=== PATIENT | female | born 1985 | race African-American/Black ===

== ENCOUNTER 2019-04-08 14:06 | Emergency (ER) | payer OTHER ==
[2019-04-08 14:12] VITALS: BP 119/86; PULSE 77; TEMP 97.9; BMI 35.2
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
[2019-04-08] MEDS ORDERED: IBUPROFEN 400 MG TABLET (FP) PO ONE (14:53)
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
== END 2019-04-08 15:12 | disposition home or self-care (01) ==
LOC: JERFT 14:06
DX: M54.5 Low back pain (principal); V43.52XA Car driver injured in collision with other type car in traffic accident, initial encounter; Y92.488 Other paved roadways as the place of occurrence of the external cause; Y93.89 Activity, other specified; Y99.8 Other external cause status; Z91.013 Allergy to seafood
CPT/HCPCS: 99281-25

== ENCOUNTER 2019-04-14 16:58 | Emergency (ER) | payer OTHER ==
[2019-04-14 17:19] VITALS: BP 137/94; PULSE 80; TEMP 97.8; BMI 37.8
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
[2019-04-14] MEDS ORDERED: LIDOCAINE 5% TOPICAL PATCH TP ONE (17:39)
[2019-04-14] MEDS ORDERED: KETOROLAC TROMETHAMINE 60 MG/2 ML VIAL IM ONE (17:39)
[2019-04-14] MEDS ORDERED: DEXAMETHASONE LIQUID 0.5 MG/5 ML PO ONE (17:39)
[2019-04-14] MEDS ORDERED: KETOROLAC TROMETHAMINE 60 MG/2 ML VIAL ONE (17:42)
[2019-04-14] MEDS ORDERED: DEXAMETHASONE SOD PHOSPHATE 10 MG/1 ML VIAL ONE (17:42)
[2019-04-14] MEDS ORDERED: LIDOCAINE 5% TOPICAL PATCH ONE (17:42)
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
== END 2019-04-14 19:00 | disposition home or self-care (01) ==
LOC: JERFT 16:58
PROC: 3E0233Z Introduction of Anti-inflammatory into Muscle, Percutaneous Approach (ICD-10-PCS; principal; 2019-04-14)
DX: M54.41 Lumbago with sciatica, right side (principal); M62.830 Muscle spasm of back; Z91.013 Allergy to seafood; V49.49XS Driver injured in collision with other motor vehicles in traffic accident, sequela
CPT/HCPCS: 72100-TC-FY; 99282-25

== ENCOUNTER 2019-06-30 11:11 | Emergency (ER) | payer OTHER ==
[2019-06-30 11:17] VITALS: BP 148/86; PULSE 90; TEMP 98.7; BMI 39.9
--- NOTE | 2019-06-30 11:28 | PDOC ---
History of Present Illness - General Chief Complaint: Sore Throat Stated Complaint: SORE THROAT Time Seen by Provider: 06/30/19 11:26 History Source: Patient - History of Present Illness Initial Comments: 06/30/19 11:35 34-year-old female complaining of sore throat and fever for the last 3 days. Patient reports that she has been taking TheraFlu and NyQuil and DayQuil for fever. Denies cough, nasal congestion. Patient reports fever of 102 today. Took Advil this morning prior to arrival No high potato voice no drooling. No past medical history Past History - Past Medical History Allergies/Adverse Reactions: Allergies Allergy/AdvReac Type Severity Reaction Status Date / Time shellfish derived Allergy Verified 06/30/19 11:17 Home Medications: Ambulatory Orders Cyclobenzaprine HCl [Flexeril 10 mg] 10 mg PO HS #9 tablet 04/08/19 Ibuprofen [Motrin -] 600 mg PO QID #28 tablet 04/08/19 Methocarbamol [Robaxin -] 500 mg PO BID #14 tablet 04/14/19 Methylprednisolone [Medrol -] 4 mg PO ASDIR #21 tablet 04/14/19 Penicillin G Benzathine [Bicillin l-A] 1,200,000 unit IM ONCE #1 syringe COPD: No - Immunization History Immunization Up to Date: Yes - Psycho Social/Smoking Cessation Hx Smoking Status: No Smoking History: Never smoked Have you smoked in the past 12 months: No Number of Cigarettes Smoked Daily: 0 Cigars Per Day: 0 Hx Alcohol Use: No Drug/Substance Use Hx: No Review of Systems - Review of Systems Able to Perform ROS?: Yes Is the patient limited Bulgarian proficient: No Constitutional: Yes: Fever HEENTM: Yes: Throat Pain Respiratory: Yes: Cough Cardiac (ROS): No: Symptoms Reported, See HPI, Chest Pain, Edema, Irregular Heart Rate, Lightheadedness, Palpitations, Syncope, Chest Tightness, Other *Physical Exam - Vital Signs Last Vital Signs Temp Pulse Resp BP Pulse Ox 98.7 F 90 18 148/86 99 06/30/19 11:13 06/30/19 11:13 06/30/19 11:13 06/30/19 11:13 06/30/19 11:13 - Physical Exam General Appearance: Yes: Appropriately Dressed HEENT: positive: Tonsillar Erythema (with tpnsillar edema. no hot potatoe voice , drooling) Respiratory/Chest: positive: Lungs Clear, Normal Breath Sounds Cardiovascular: positive: Regular Rhythm, Regular Rate Gastrointestinal/Abdominal: positive: Normal Bowel Sounds, Soft. negative: Tender Musculoskeletal: positive: Normal Inspection Extremity: positive: Normal Capillary Refill, Normal Inspection, Normal Range of Motion Integumentary: positive: Normal Color, Dry, Warm Neurologic: positive: Fully Oriented, Alert Medical Decision Making - Medical Decision Making 06/30/19 12:10 pharyngitis P: bicillin rapid strep: positive Discharge - Discharge Information Problems reviewed: Yes Clinical Impression/Diagnosis: Pharyngitis Qualifiers: Pharyngitis/tonsillitis etiology: streptococcus Qualified Code(s): J02.0 - Streptococcal pharyngitis Disposition: HOME - Additional Discharge Information Prescriptions: Penicillin G Benzathine [Bicillin l-A] 1,200,000 unit IM ONCE #1 syringe - Follow up/Referral - Patient Discharge Instructions Patient Printed Discharge Instructions: Strep Throat Additional Instructions: Gargle with warm salty water take ibuprofen every 6 hours as needed for pain take tylenol every 4 hours as needed for pain throw away toothbrush in 3-4 days do not share cups or utensil with others Take amoxicillin as prescribed follow up with your doctor as soon as possible. Additional Instructions: Please call your personal physician to report your Emergency Department visit and to report your progress, if any. If there is no improvement in symptoms in 2 days call your physician. Return to the Emergency Department for any worsening symptoms. - Post Discharge Activity Work/Back to School Note: Back to Work
[2019-06-30] MEDS ORDERED: PENICILLIN G BENZATHINE 1,200,000 UNIT/2 ML PFS IM ONE ×2 (12:10→12:14)
== END 2019-06-30 12:36 | disposition home or self-care (01) ==
LOC: JERFT 11:11
DX: J02.0 Streptococcal pharyngitis (principal); B95.0 Streptococcus, group A, as the cause of diseases classified elsewhere; Z91.013 Allergy to seafood
CPT/HCPCS: 87880; 99281-25

== ENCOUNTER 2022-04-15 17:51 | Emergency (ER) | payer OTHER ==
[2022-04-15 17:58] VITALS: BP 122/87; PULSE 74; RESP 20; TEMP 98.7; BMI 32.3
[2022-04-15] MEDS ORDERED: KETOROLAC TROMETHAMINE 30 MG/1 ML VIAL IM ONE (18:15)
[2022-04-15] MEDS ORDERED: CYCLOBENZAPRINE HCL 10 MG TABLET (FP) PO ONE (18:15)
[2022-04-15] MEDS ORDERED: LIDOCAINE 5% TOPICAL PATCH TP ONE (18:15)
[2022-04-15] MEDS ORDERED: LIDOCAINE 5% TOPICAL PATCH ONE (18:25)
[2022-04-15] MEDS ORDERED: CYCLOBENZAPRINE HCL 10 MG TABLET (FP) ONE (18:25)
[2022-04-15] MEDS ORDERED: KETOROLAC TROMETHAMINE 30 MG/1 ML VIAL ONE (18:25)
[2022-04-15] MEDS ORDERED: LIDOCAINE PATCH REMOVAL MC SCH (22:00)
== END 2022-04-15 19:33 | disposition home or self-care (01) ==
LOC: JER 17:51
PROC: 3E023GC Introduction of Other Therapeutic Substance into Muscle, Percutaneous Approach (ICD-10-PCS; principal; 2022-04-15)
DX: M54.2 Cervicalgia (principal); M71.21 Synovial cyst of popliteal space [Baker], right knee
CPT/HCPCS: 73562-TC-LT-FY; 99284-25

== ENCOUNTER 2022-04-22 18:12 | Emergency (ER) | payer OTHER ==
[2022-04-22 18:20] VITALS: BP 122/86; PULSE 98; RESP 18; TEMP 99; BMI 32.3
[2022-04-22] MEDS ORDERED: FLUCONAZOLE 50 MG TABLET PO ONE (19:13)
[2022-04-22 19:50] LABS: URINE APPEARANCE CLEAR; URINE BILIRUBIN NEGATIVE (NEGATIVE); URINE COLOR YELLOW; URINE GLUCOSE (UA) NEGATIVE (NEGATIVE); URINE KETONE NEGATIVE (NEGATIVE); URINE LEUK ESTERASE NEGATIVE (NEGATIVE); URINE NITRITE NEGATIVE (NEGATIVE); URINE PROTEIN NEGATIVE (NEGATIVE)
[2022-04-22 19:52] LABS: HCG,QUALITATIVE URINE Negative
[2022-04-22] MEDS ORDERED: FLUCONAZOLE 150 MG TABLET PO ONE (19:58)
== END 2022-04-22 20:16 | disposition home or self-care (01) ==
LOC: JERFT 18:12
DX: B37.3 Candidiasis of vulva and vagina (principal)
CPT/HCPCS: 36415; 81003; 84703; 87070; 87086; 87205; 87491; 87591; 87661; 99283-25

== ENCOUNTER 2023-11-06 08:27 | Emergency (ER) | payer SELFPAY ==
[2023-11-06 08:37] VITALS: BP 133/97; PULSE 86; RESP 18; TEMP 98; BMI 34.3
[2023-11-06] MEDS ORDERED: ALBUTEROL SO4 2.5/IPRATROPIUM 0.5 INH SOL 3 ML VIAL.NEB. NEB ONE (09:29)
[2023-11-06] MEDS: ALBUTEROL SO4 2.5/IPRATROPIUM 0.5 INH SOL 3 ML VIAL.NEB. NEB ONE (09:32)
== END 2023-11-06 10:32 | disposition home or self-care (01) ==
LOC: JERFT 08:27 → JER 08:27 → JERFT 10:32
PROC: 3E0F7GC Introduction of Other Therapeutic Substance into Respiratory Tract, Via Natural or Artificial Opening (ICD-10-PCS; principal; 2023-11-06)
DX: J45.41 Moderate persistent asthma with (acute) exacerbation (principal); R05.9 Cough, unspecified; R07.89 Other chest pain
CPT/HCPCS: 99283-25

== ENCOUNTER 2024-01-31 16:54 | Emergency (ER) | payer OTHER ==
[2024-01-31 17:09] VITALS: BP 130/94; PULSE 71; RESP 16; TEMP 98.1; BMI 34.1
[2024-01-31] MEDS ORDERED: diphenhydrAMINE HCL 25 MG CAPSULE (FP) PO ONE (18:04)
[2024-01-31] MEDS ORDERED: DEXAMETHASONE SOD PHOSPHATE 10 MG/1 ML VIAL ONE (18:04)
[2024-01-31] MEDS: diphenhydrAMINE HCL 50 MG CAPSULE PO ONE (18:08)
[2024-01-31] MEDS: DEXAMETHASONE SOD PHOSPHATE 10 MG/1 ML VIAL IM ONE (18:08)
== END 2024-01-31 18:58 | disposition home or self-care (01) ==
LOC: JERFT 16:54 → JER 16:54 → JERFT 18:58
PROC: 3E023GC Introduction of Other Therapeutic Substance into Muscle, Percutaneous Approach (ICD-10-PCS; principal; 2024-01-31)
DX: R21 Rash and other nonspecific skin eruption (principal); L50.9 Urticaria, unspecified; L29.9 Pruritus, unspecified
CPT/HCPCS: 99284-25; J1100

== ENCOUNTER 2024-04-13 13:51 | Emergency (ER) | payer OTHER ==
[2024-04-13 13:57] VITALS: BP 131/83; PULSE 75; RESP 18; TEMP 98.6; BMI 33.7
[2024-04-13] MEDS ORDERED: ACETAMINOPHEN 500 MG TABLET (FP) ONE (14:38)
[2024-04-13] MEDS: ACETAMINOPHEN 500 MG TABLET (FP) PO ONE (14:50)
[2024-04-13 15:36] LABS: BASO % 1.2 % (0-2.0); EOS % 0.6 % (0-4.5); HEMATOCRIT 38.9 % (32.4-45.2); HEMOGLOBIN 12.9 GM/dL (10.7-15.3); LYMPH % 54.1 % (8-40); MCH 30.5 pg (25.7-33.7); MCHC 33.2 g/dl (32.0-36.0); MEAN PLT VOLUME 7.8 fl (7.5-11.1); MONO % 5.4 % (3.8-10.2); NEUT % 38.7 % (42.8-82.8); PLATELET COUNT 297 10^3/uL (134-434); RBC 4.23 M/mm3 (3.60-5.2); RDW 13.6 % (11.6-15.6); WHITE BLOOD COUNT 3.9 K/mm3 (4.0-10.0)
[2024-04-13 15:47] LABS: EPI CELLS >36 /uL (0-25.1); HYALINE CASTS 7 /uL (0-3.1); PH,URINE 6.5 (5.0-8.0); URINE APPEARANCE CLEAR; URINE BACTERIA 1158 /uL (0-1359); URINE BILIRUBIN NEGATIVE (NEGATIVE); URINE COLOR YELLOW; URINE GLUCOSE (UA) NEGATIVE (NEGATIVE); URINE KETONE NEGATIVE (NEGATIVE); URINE LEUK ESTERASE 1+ (NEGATIVE); URINE NITRITE NEGATIVE (NEGATIVE); URINE PROTEIN NEGATIVE (NEGATIVE); URINE RBC 10 /uL (0-23.9); URINE UROBILINOGEN 0.2 mg/dL (0.2-1.0); URINE WBC 51 /uL (0-25.8)
[2024-04-13 16:03] LABS: POTASSIUM 3.6 mmol/L (3.5-5.1)
[2024-04-13 16:06] LABS: ALBUMIN 3.7 g/dl (3.4-5.0); BLOOD UREA NITROGEN 6.7 mg/dL (7-18); CALCIUM 9.1 mg/dL (8.5-10.1)
[2024-04-13 16:10] LABS: BILIRUBIN,TOTAL 0.5 mg/dL (0.2-1); CREATININE 0.6 mg/dL (0.55-1.3); TOT PROT 7.6 g/dl (6.4-8.2)
[2024-04-13] MEDS ORDERED: IBUPROFEN 600 MG TABLET (FP) PO ONE (17:07)
[2024-04-13] MEDS: IBUPROFEN 600 MG TABLET (FP) PO ONE (17:13)
[2024-04-13 17:22] LABS: HIV INTERPRETATION NEGATIVE (NEGATIVE)
== END 2024-04-13 17:58 | disposition home or self-care (01) ==
LOC: JER 13:51
DX: R07.81 Pleurodynia (principal); R51.9 Headache, unspecified; N39.0 Urinary tract infection, site not specified; Z20.822 Contact with and (suspected) exposure to COVID-19
CPT/HCPCS: 0241U-QW; 36415; 71046-TC-FY; 80053; 81003; 84703; 85025; 86803; 87389; 93005; 93010; 99285-25

== ENCOUNTER 2024-08-02 00:20 | Emergency (ER) | payer OTHER ==
[2024-08-02 00:31] VITALS: BP 134/94; PULSE 95; RESP 18; TEMP 98.6; BMI 34.1
[2024-08-02] MEDS ORDERED: IBUPROFEN 400 MG TABLET (FP) PO ONE (00:57)
[2024-08-02] MEDS: IBUPROFEN 400 MG TABLET (FP) PO ONE (01:06)
[2024-08-02 01:32] LABS: THROAT:GRP A STREP NOT DETECTED (NOTDETECTED)
== END 2024-08-02 02:35 | disposition home or self-care (01) ==
LOC: JER 00:20
DX: J10.1 Influenza due to other identified influenza virus with other respiratory manifestations (principal); R50.9 Fever, unspecified; R09.81 Nasal congestion; R05.9 Cough, unspecified; Z20.822 Contact with and (suspected) exposure to COVID-19
CPT/HCPCS: 0241U-QW; 71046-TC-FY; 87651; 99284-25

== ENCOUNTER 2024-12-19 11:52 | Day surgery (SDC) | payer OTHER ==
[2024-12-16 10:09] VITALS: BMI 32.9
[2024-12-19] MEDS: GABAPENTIN 300 MG CAPSULE PO ONE (06:56)
[2024-12-19] MEDS: PHENAZOPYRIDINE HCL 100 MG TABLET (FP) PO ONE (06:56)
[2024-12-19] MEDS: ceFAZolin 2 GRAM PREMIX BAG IVPB ONE (08:14)
[~2024-12-19 11:52] MED LIST: ACETAMINOPHEN INJECTION 100 ML ONE; BISACODYL 5 MG TABLET.DR (FP) PO PRN; DEXAMETHASONE SOD PHOSPHATE 4 MG/1 ML VIAL ONE; HYDROmorphone HCl 2 MG/ML VIAL ONE; KETOROLAC TROMETHAMINE 30 MG/1 ML VIAL ONE; LACTATED RINGERS SOLUTION 1,000 ML IV SCH; LIDOCAINE HCL/PF 2% SDV 5ML VIAL ONE; MIDAZOLAM HCL 2 MG/2 ML SINGLE DOSE VIAL ONE; ONDANSETRON 4 MG/2 ML VIAL IVPUSH PRN; ONDANSETRON 4 MG/2 ML VIAL ONE; PROPOFOL 20 ML ONE; ROCURONIUM BROMIDE 50 MG/5 ML SYRINGE ONE; SUGAMMADEX SODIUM 200 MG/2 ML VIAL ONE; ceFAZolin SODIUM 1 GM VIAL ONE; oxyCODONE HCL 5 MG TABLET PO PRN
[2024-12-19] MEDS ORDERED: ONDANSETRON 4 MG/2 ML VIAL IVPUSH PRN (12:45)
[2024-12-19] MEDS ORDERED: HYDROmorphone HCL CARPU-JECT 2 MG/1 ML DISP.SYRIN ONE (14:34)
[2024-12-19] MEDS: HYDROmorphone HCl 2 MG/ML VIAL IVPUSH ONE (14:37)
[2024-12-19] MEDS: LACTATED RINGERS SOLUTION 1,000 ML IV SCH (14:41)
[2024-12-19] MEDS ORDERED: morphine CARPU-JECT 2 MG/1 ML DISP.SYRIN IVPUSH PRN ×2 (14:59→15:00)
[2024-12-19 16:15] VITALS: RESP 18
[2024-12-19] MEDS: CEFAZOLIN 1 GM/D5W 1 GM/50 ML BAG IVPB SCH (16:22)
[2024-12-19] MEDS: ACETAMINOPHEN 1000 MG/100 ML BAG IVPB SCH (17:31)
[2024-12-19 17:54] LABS: HEMATOCRIT 38.6 % (34.1-44.9); HEMOGLOBIN 12.5 g/dL (11.2-15.7); MCHC 32.4 g/dl (32.2-35.5); MEAN CELL VOLUME 95.3 fl (79.4-94.8); MEAN PLT VOLUME 9.6 fl (9.4-12.3); PLATELET COUNT 269 x10^3/uL (182-369); RDW 13.1 % (12.1-16.8)
[2024-12-19 18:15] LABS: POTASSIUM 4.5 mmol/L (3.5-5.1)
[2024-12-19 18:18] LABS: CALCIUM 8.9 mg/dL (8.5-10.1)
[2024-12-19 18:19] LABS: BLOOD UREA NITROGEN 11.6 mg/dL (7-18)
[2024-12-19 18:22] LABS: CREATININE 1.1 mg/dL (0.55-1.3)
[2024-12-19] MEDS: IBUPROFEN 800 MG/8 ML IJ IVPB SCH (18:32)
[2024-12-19] MEDS: SIMETHICONE 80 MG TAB.CHEW (FP) PO PRN (23:18)
[2024-12-19] MEDS: DOCUSATE SODIUM 100 MG CAPSULE (FP) PO PRN (23:18)
[2024-12-20] MEDS: FLUTICASONE/SALMETEROL (WIXELA) 100 MCG/50 MCG DISKUS IH SCH (00:05)
[2024-12-20] MEDS: oxyCODONE HCL 5 MG TABLET PO PRN ×2 (02:56→08:29)
[2024-12-20] MEDS ORDERED: IBUPROFEN 600 MG TABLET (FP) PO PRN (07:14)
[2024-12-20 08:06] LABS: HEMATOCRIT 35.3 % (34.1-44.9); HEMOGLOBIN 11.4 g/dL (11.2-15.7); MCHC 32.3 g/dl (32.2-35.5); MEAN CELL VOLUME 94.6 fl (79.4-94.8); MEAN PLT VOLUME 9.7 fl (9.4-12.3); PLATELET COUNT 241 x10^3/uL (182-369)
[2024-12-20 08:22] LABS: POTASSIUM 4.3 mmol/L (3.5-5.1)
[2024-12-20 08:27] LABS: BLOOD UREA NITROGEN 7.1 mg/dL (7-18)
[2024-12-20 08:28] LABS: CALCIUM 8.5 mg/dL (8.5-10.1)
[2024-12-20 08:32] LABS: CREATININE 0.6 mg/dL (0.55-1.3)
[2024-12-20] MEDS: ENOXAPARIN NA (PORCINE) 40 MG/0.4 ML DISP.SYRIN SQ SCH (09:26)
[2024-12-20] MEDS ORDERED: IBUPROFEN 600 MG TABLET (FP) PO SCH (10:00)
[2024-12-20] MEDS: ACETAMINOPHEN 500 MG TABLET (FP) PO SCH (12:26)
[2024-12-20 14:16] VITALS: BP 128/89; PULSE 87; TEMP 98.1
== END 2024-12-20 15:15 | disposition home or self-care (01) ==
LOC: JASUSAT 11:52 → J3W 14:56 → JASUSAT 16:58 → J3W 16:58 → UNDOADMIN 12-20 07:17 → J3W 12-20 07:17 → JASUSAT 12-20 15:15
PROVIDERS: ATTEND Obstetrics & Gynecology
PROC: 0UB94ZZ Excision of Uterus, Percutaneous Endoscopic Approach (ICD-10-PCS; principal; 2024-12-19 07:45)
PROC: 0UB04ZZ Excision of Right Ovary, Percutaneous Endoscopic Approach (ICD-10-PCS; 2024-12-19 07:45)
DX: D25.9 Leiomyoma of uterus, unspecified (principal); D25.2 Subserosal leiomyoma of uterus; N83.291 Other ovarian cyst, right side
CPT/HCPCS: 58545; 58662; S2900; 36415; 80048; 81025; 85027; 86850; 86900; 86901; 94010; 94760

== ENCOUNTER 2025-03-04 15:05 | Emergency (ER) | payer OTHER ==
[2025-03-04 15:17] VITALS: BP 124/92; PULSE 102; RESP 19; TEMP 98.6; BMI 34.1
== END 2025-03-04 15:40 | disposition home or self-care (01) ==
LOC: JER 15:05 → JERFT 15:05
PROC: 0HQ1XZZ Repair Face Skin, External Approach (ICD-10-PCS; principal; 2025-03-04)
DX: S01.511A Laceration without foreign body of lip, initial encounter (principal); Y04.8XXA Assault by other bodily force, initial encounter
CPT/HCPCS: 99282-25